=== PATIENT | male | born 1975 | race Caucasian/White ===

== ENCOUNTER 2017-07-25 04:43 | Emergency (ER) | payer OTHER, MEDICAID ==
[2017-07-25] MEDS: ACETAMINOPHEN 325 MG TAB PO (05:33)
[2017-07-25] MEDS: IBUPROFEN 600 MG TAB PO (05:33)
== END 2017-07-25 05:57 | disposition home or self-care (01) ==
LOC: FTE 04:43
DX: H65.01 Acute serous otitis media, right ear (principal); H61.23 Impacted cerumen, bilateral
CPT/HCPCS: 69209; 99283-25